=== PATIENT | female | born 1990 | race Caucasian/White ===

== ENCOUNTER 2022-01-17 17:01 | Outpatient (CLI) | payer OTHER, SELFPAY ==
[2022-01-17 15:54] LABS: Vitamin D 25 Hydroxy* 34 ng/mL (30-80)
[2022-01-17 16:11] LABS: Albumin* 4.1 g/dL (3.3-5.0); Chloride* 105 mmol/L (96-114)
[2022-01-17 16:12] LABS: Potassium* 4.8 mmol/L (3.6-5.1); Sodium* 137 mmol/L (135-149)
[2022-01-17 16:14] LABS: Aspartate Amino Transferase* 27 U/L (12-35); Bilirubin Total* 0.3 mg/dL (0.1-1.5); Carbon Dioxide* 25 mmol/L (20-32); Cholesterol* 194 mg/dL (90-199); Creatinine* 0.7 mg/dL (0.5-1.5); Estimated Glomerular Filt Rate 118 ml/min
[2022-01-17 16:15] LABS: Alanine Aminotransferase* 30 U/L (4-35); Alkaline Phosphatase* 54 U/L (40-150); Blood Urea Nitrogen* 8 mg/dL (5-24); Calcium* 9.3 mg/dL (8.4-10.6); Glucose* 81 mg/dL (60-115); HDL Cholesterol* 50 mg/dL (>=50); LDL Cholesterol Calculated 128 mg/dL (<100); Triglycerides* 81 mg/dL (40-149)
== END 2022-01-17 17:02 | disposition home or self-care (01) ==
PROVIDERS: PCP Physician Assistant Medical; Visit Provider Nurse Practitioner Family
DX: Z01.419 Encounter for gynecological examination (general) (routine) without abnormal findings (principal); E78.5 Hyperlipidemia, unspecified; F41.9 Anxiety disorder, unspecified; Z79.899 Other long term (current) drug therapy; E55.9 Vitamin D deficiency, unspecified; F32.A Depression, unspecified; F90.9 Attention-deficit hyperactivity disorder, unspecified type; R61 Generalized hyperhidrosis; Z13.21 Encounter for screening for nutritional disorder
CPT/HCPCS: 80053; 80061; 82306; 84443

== ENCOUNTER 2022-10-03 11:15 | Outpatient (RCR) | payer OTHER, SELFPAY | END 2022-12-25 10:30 | disposition home or self-care (01) | PROVIDERS: PCP Physician Assistant Medical; Visit Provider Physician Assistant Medical | DX: M54.50 Low back pain, unspecified (principal); Z51.89 Encounter for other specified aftercare | CPT/HCPCS: 97110; 97161 ==

== ENCOUNTER 2022-12-25 07:55 | Outpatient (CLI) | payer OTHER, SELFPAY | END 2022-12-25 07:56 | disposition home or self-care (01) | LOC: NFLDREF 15:27 | PROVIDERS: PCP Physician Assistant Medical; Referring Provider Physician Assistant Medical; Visit Provider Nurse Practitioner Family | DX: Z79.899 Other long term (current) drug therapy (principal) | CPT/HCPCS: 80053; 80061; 84443 ==

== ENCOUNTER 2023-04-14 08:33 | Outpatient (CLI) | payer OTHER, SELFPAY | END 2023-04-14 08:34 | disposition home or self-care (01) | LOC: NFLDREF 04-15 06:55 | PROVIDERS: PCP Physician Assistant Medical; Referring Provider Physician Assistant Medical; Visit Provider Physician Assistant Medical | DX: Z00.00 Encounter for general adult medical examination without abnormal findings (principal); R74.01 Elevation of levels of liver transaminase levels | CPT/HCPCS: 80076; 86703; 86803 ==

== ENCOUNTER 2023-05-15 16:26 | Outpatient (CLI) | payer OTHER, SELFPAY ==
[2023-05-15 23:11] LABS: Chlamydia DNA Amplified* Not Detected (No Detected); GC DNA Amplified* Not Detected (No Detected)
== END 2023-05-15 16:27 | disposition home or self-care (01) ==
LOC: LKVREF 16:45
PROVIDERS: PCP Physician Assistant Medical; Visit Provider Physician Assistant Medical
DX: Z11.3 Encounter for screening for infections with a predominantly sexual mode of transmission (principal)
CPT/HCPCS: 87491; 87591

== ENCOUNTER 2023-07-11 14:48 | Outpatient (CLI) | payer OTHER, SELFPAY ==
[2023-07-11 20:56] LABS: Bacterial Vaginosis* Negative (Negative); Candida glab/krus NOT DETECTED (No Detected); Candida species NOT DETECTED (No Detected); Trichomonas vaginalis NOT DETECTED (No Detected)
== END 2023-07-11 14:49 | disposition home or self-care (01) ==
LOC: NFLDREF 15:10
PROVIDERS: PCP Physician Assistant Medical; Visit Provider Obstetrics & Gynecology
DX: N72 Inflammatory disease of cervix uteri (principal)
CPT/HCPCS: 81513; 87481; 87661

== ENCOUNTER 2023-07-17 16:00 | Outpatient (CLI) | payer OTHER, SELFPAY ==
[2023-07-17 20:33] LABS: Chlamydia DNA Amplified* NOT DETECTED (No Detected); GC DNA Amplified* NOT DETECTED (No Detected)
== END 2023-07-17 16:01 | disposition home or self-care (01) ==
PROVIDERS: PCP Physician Assistant Medical; Visit Provider Obstetrics & Gynecology
DX: Z11.3 Encounter for screening for infections with a predominantly sexual mode of transmission (principal)
CPT/HCPCS: 87491; 87563; 87591